=== PATIENT | female | born 1950 ===

== ENCOUNTER 2024-02-11 06:15 | Inpatient (IN) | payer MEDICARE, OTHER, SELFPAY ==
[2024-01-25 14:12] VITALS: BMI 31.4
[2024-01-25 15:13] LABS: Hematocrit 43.3 % (37.0-47.0); Hemoglobin 14.6 g/dL (12.0-16.0); Mean Corp Hgb Conc. 33.7 g/dL (33.0-37.0); Mean Corpuscular Hgb 30.7 pg (27.0-31.0); Mean Platelet Volume 9.7 fL (7.4-10.4); Platelet Count 334 10^3/uL (130-400); Red Blood Cell Count 4.76 10^6/uL (4.20-5.40); Red Cell Dist. Width 12.6 % (11.5-14.5); White Blood Cell Count 5.7 10^3/uL (4.8-10.8)
[2024-01-25 15:56] LABS: ALT (SGPT) 21 U/L (0-35); AST (SGOT) 24 U/L (14-36); Albumin 4.1 g/dl (3.5-5.0); Alkaline Phosphatase 62 U/L (38-126); Blood Urea Nitrogen 17 mg/dl (7-17); Calcium 9.8 mg/dl (8.4-10.2); Carbon Dioxide 24 mmol/L (22-30); Chloride 104 mmol/L (98-107); Estimated Creatinine Clearance 66 ml/min; Glucose 108 mg/dl (70-99); Sodium 140 mmol/L (135-145); Total Bilirubin 0.6 mg/dl (0.2-1.3); Total Protein 6.4 g/dl (6.3-8.2); eGFR > 60.00
[2024-01-26 09:06] LABS: Glycohemoglobin (HgbA1c) 5.9 % (4.0-5.6)
[2024-02-08 12:28] VITALS: BMI 31.4
[2024-02-11] VITALS (13 sets, daily range): BP systolic 128–200; BP diastolic 66–95; PULSE 91; O2SAT 98
[2024-02-11] MEDS: TYLENOL 650 MG PO ×5 (06:23→23:05)
[2024-02-11] MEDS: MOBIC 15 MG PO (06:23)
--- NOTE | 2024-02-11 09:46 | OR.RPT ---
Operative Report
Operative Report
Orthopaedic Surgery Operative Note
DATE OF OPERATION: 02/11/2024
PREOPERATIVE DIAGNOSES: Osteoarthritis, right knee.
POSTOPERATIVE DIAGNOSES: Osteoarthritis, right knee.
OPERATION PERFORMED:
1) Right total knee arthroplasty (CPT 42538)
2) Intraosseous administration of analgesic (CPT 79289)
SURGEON: Avel Marrero MD
ASSISTANTS: Carlos Jackman PA-C who helped with patient and limb positioning and retraction
ANESTHESIA: Spinal by anesthesia plus intraoperative infusion of morphine into the tibial metaphysis by Dr. Marrero
COMPLICATIONS: None.
ESTIMATED BLOOD LOSS: 20mL
DRAINS: None
TOURNIQUET TIME: 61 minutes.
IMPLANTS:
- Ericka Persona CR Femur, size 8
- Ericka Persona tibia base plate, size D
- Ericka Persona medial constrained articular surface, 10 mm
- All-polyethylene patellar component, size 32
- DJO [place] bone cement
INDICATIONS: The patient presented to my office with debilitating right knee pain due to osteoarthritis. We reviewed the natural history of this problem, as well as the risks, benefits, and alternatives of various treatment options. The patient
exhausted all nonoperative treatment options and wished to proceed with knee replacement surgery. The patient understood the risks which included, but were not limited to, bleeding, infection, failure to relieve pain, more pain than preop, damage to
blood vessels and nerves, need for reoperation, mechanical failure of the implants, wound healing problems, stiffness, instability, blood clot, pulmonary embolism, myocardial infarction, pneumonia, arrhythmia, CVA, and . The patient accepted
these risks and wished to proceed. All questions were answered, and informed consent was obtained.
PROCEDURE IN DETAIL: The patient was identified in the preoperative holding area. The right knee was identified as the operative site. The patient was taken in the operating room and placed in a supine position on the operating table. Spinal
anesthesia was performed. IV antibiotics and tranexamic acid were administered. An SCD was placed on the left lower extremity. A well-padded tourniquet was placed on the proximal thigh. All bony prominences were well padded. The right lower
extremity was prepped and draped in the usual sterile fashion.
We performed a surgical time-out. An interarticular block was performed with local anesthetic with epinephrine. The limb was exsanguinated with an Esmarch bandage, then the tourniquet was inflated to 250 mmHg. I performed interosseous administration
of morphine-saline solution via a Jamshidi style intraosseous needle into the proximal medial tibial metaphysis as described by Trav Stafford MD. This was performed to aid in pain control. A midline skin incision was made followed by a medial
parapatellar arthrotomy. A subperiosteal peel was performed on the medial tibia. I excised part of the infrapatellar fat pad to improve our visualization as well as tissue over anterior femur. The patella was everted and the knee was flexed. I
excised the remnants of the anterior and posterior cruciate ligaments as well as tibial and femoral osteophytes with rongeurs.
The knee was flexed, and the extramedullary tibial cutting guide was aligned. [place] was aligned at neutral, rotation was centered on the tibial tubercle, and coronal alignment was aligned with the mechanical axis of the tibia and center of the ankle
joint. The cut height was 10mm off the lateral tibia joint surface. The guide was secured into place. The MCL and LCL were protected. The tibia surface was cut. The cut surface was inspected after removal to ensure appropriate height and slope based
on the preoperative plan. The cut was checked with a drop liliana. It was centered nicely at the ankle.
A drill was used to open the femoral canal. The intramedullary distal femoral cutting guide was inserted into the femur. This was set at 5 degrees +0. This was secured into place with three pins. The cut level was checked with an howard wing. The
distal femur was cut through the cutting guide. The IM guide was reinserted to double check that the level of resection was flush and in appropriate alignment.
Gio�s line and the transepicondylar axis were marked on the femur. The femoral sizing guide was applied to the anterior femur. Pins were inserted, and the 4-in-1 cutting guide was applied and secured into place. The rotation was compared to
Gio�s line, the transepicondylar axis, and the neutral tibia cut and was found to be appropriate. The width was checked and found to be appropriate and lateralized on the femur. The anterior, posterior, and chamfur cuts were made. A lamina
property preservation specialist was used to open the flexion gap, and posterior osteophytes were removed with a curved osteotome. The remnant medial and lateral meniscus were also removed. I prophylactically cauterized the lateral geniculate arteries. A 10mm spacer block
was applied to the flexion gap and was noted to be balanced medially and laterally. The knee was extended, and the block showed symmetric to extension and flexion gaps.
The tibia was exposed and sized. Rotation was set in line with the tibial tubercle and congruent with the femur. The trial was secured into place with two pins. The trial femur was impacted into place, and a trial articular surface was placed. The
knee was taken through range of motion and noted to be stable throughout the arc of motion without gaping or excess tension. In extension, a measured resection of the patella was performed. The patella was sized, and lug holes were drilled. A trial
patella component was applied, and it was noted to track centrally throughout the arc of motion without need for further releases.
The trials were removed. The tibia keel was prepared with the punch and the drill. The bone surfaces were irrigated with sterile saline and dried. The cement was mixed in a vacuum mixer. Cement gun was used to apply cement to the tibial surface and
the undersurface of the tibial implant. Cement was pressurized into the tibial canal and tibia surface. The tibial component was impacted into place. Excess cement was removed. Cement was applied to the femoral surface and the femoral component. The
femoral component was impacted into place, and excess cement removed. A trial articular surface was inserted, and the knee was extended while the cement polymerized. The tourniquet was let down, and meticulous hemostasis was achieved. Dilute
betadine was poured into the wound and allowed to soak for 3 minutes. The knee was irrigated with copious normal saline.
Once the cement was polymerized, the trial articular surface was removed. Any excess cement was removed. The knee was trialed, and the final articular surface was selected and inserted into the tibial locking mechanism. The knee was reduced. A fresh
drape was applied to the surgical field.
The arthrotomy was closed with 0-PDS. Once closed, an interarticular block was performed with local anesthetic with epi. The deep dermal layer was closed with 2-0 PDS, and the subcuticular skin was closed with 3-0 monocryl. A Dermabond Prineo
dressing was applied to the skin in full flexion. Once this was completely dry, a sterile waterproof dressing was applied.
The anesthesia team performed an adductor canal block in the OR. The patient awoke from anesthesia without any difficulties. The sponge and instrument counts were correct x2 at the end of the case.
Emery Marrero MD
[2024-02-11] MEDS: ROXICODONE 5 MG PO ×3 (11:33→23:48)
--- NOTE | 2024-02-11 11:57 | PTCARENOTE ---
Pt arrived to [facility] from PACU s/p R TKR. Pt AAOx3, NV intact, R knee dressing C/D/I, pt states no pain at this time. Pt oriented to room and call mcdonough, call mcdonough within reach, bed locked and in lowest position.
[2024-02-11] MEDS: NORMOSOL-R/PLASMALYTE-A 1000 IV (12:34)
--- NOTE | 2024-02-11 13:41 | CM ---
Reviewed the chart notes and spoke with the patient at the bedside. The patient resides with her spouse in a two story home with two steps to enter. The patient has a rolling walker. The patient reports on VN or SNF in the past. The patient
confirmed her pharmacy of choice is the [facility]. CM consult for homecare received and discussed with the patient. The patient selected VN. Referral sent via [facility]. CM continues to be available to patient/family and is
monitoring medical plan for needs at discharge.
Plan: Discharge to home with VN services.
[2024-02-11] MEDS: ANCEF 5 IV ×2 (15:00→21:00)
--- NOTE | 2024-02-11 15:20 | W.PN.UPDATE ---
Update Note
Progress Note Update
R knee OA s/p R TKA w/ Dr Marrero 02/11/24
DVT prophylaxis - ASA, b/l venous foot pumps
HTN - + parameters - monitor BP
PAF (brief) - maintaining NSR - monitor on tele
- Continue BB
- No OAC
HLD
Hypothyroidism
Cervical DDD
OAB
Psoriasis
Anxiety
Prediabetes, A1c 5.9
Obesity, BMI 31.4
[2024-02-11] MEDS: ASPIRIN 325 MG PO (17:03)
[2024-02-11] MEDS: COLACE 100 MG PO (19:58)
[2024-02-11] MEDS: DECADRON 4 MG PO (19:58)
[2024-02-11] MEDS: BACTROBAN 2% OINTMENT 1 APPLIC NASAL (19:58)
[2024-02-11] MEDS: SENOKOT 17.2 MG PO (19:58)
[2024-02-11] MEDS: PEPCID 20 MG PO (21:00)
[2024-02-12 03:49] VITALS: BP 137/70
[2024-02-12] MEDS: TYLENOL PO ×2 (05:24→11:56)
[2024-02-12] MEDS: ROXICODONE 5 MG PO ×2 (06:25→11:55)
[2024-02-12] MEDS: SYNTHROID 112 MCG PO (06:25)
[2024-02-12 07:30] VITALS: BP 176/86
[2024-02-12] MEDS: SENOKOT 17.2 MG PO (07:59)
[2024-02-12] MEDS: COLACE 100 MG PO (07:59)
[2024-02-12] MEDS: NORVASC 5 MG PO (07:59)
[2024-02-12] MEDS: LOPRESSOR 50 MG PO (07:59)
[2024-02-12] MEDS: ASPIRIN 325 MG PO (08:00)
[2024-02-12] MEDS: MOBIC 15 MG PO (08:00)
[2024-02-12] MEDS: BACTROBAN 2% OINTMENT 1 APPLIC NASAL (08:00)
[2024-02-12] MEDS: DECADRON 4 MG PO (08:00)
[2024-02-12] MEDS: TYLENOL 650 MG PO (08:00)
[2024-02-12 09:45] VITALS: BP 183/74
[2024-02-12 11:15] VITALS: BP 179/80
--- NOTE | 2024-02-12 11:25 | W.PN.ORTHO ---
Today's Communication / Plan
-
D/c today if remaining clinically stable.
Assessment
.
Distal Motor Intact: Yes
Dressing:
Clean, dry and intact.
Assessment:
R knee OA s/p R TKA w/ Dr Marrero 02/11/24
DVT prophylaxis - ASA, b/l venous foot pumps
HTN - + parameters - BPs overall stable
PAF (brief) - maintaining NSR on tele
- Continue BB
- No OAC
HLD
Hypothyroidism
Cervical DDD
OAB
Psoriasis
Anxiety
Prediabetes, A1c 5.9
Obesity, BMI 31.4
Plan
.
Surgery / Date: R TKA w/ Dr Marrero 02/11/24
DVT Prophylaxis: Aspirin
Activity:
Out of bed.
PT/OT
Discharge Plan: Home w/ Outpatient PT (unless therapy feels home VN/PT would be beneficial)
Subjective
.
.:
Patient resting comfortably in bed this AM.
R knee pain overall well controlled w/ current pain meds.
Denies any new significant complaints.
Eager for potential d/c today.
Vital Signs and Labs
.
Vital Signs and Labs:
Lab Results
01/25/24 14:08
01/25/24 14:08
Temp Pulse Resp BP Pulse Ox
98.0 F 53 16 179/80 99
02/12/24 11:15 02/12/24 11:15 02/12/24 11:15 02/12/24 11:15 02/12/24 11:15
Non-invasive Hgb result: 14.1
Physical Exam
-
HEENT: No pallor, cyanosis, or jaundice. Throat clear.
NECK: Supple. No JVD.
RESPIRATORY: Lungs clear to auscultation.
CVS: S1, S2 normal. RRR.�
ABDOMEN: Soft, non-tender. No distension. Obese.
EXTREMITIES: Expected R knee post-surgical edema. Strength equal, no calf pain with palpation/dorsiflexion. Calves soft.
LINE PAINTING MACHINE OPERATOR: AOx3. No focal deficits. pocket machine operator grossly intact
[2024-02-12 11:52] VITALS: BP 179/86; PULSE 53; O2SAT 99
--- NOTE | 2024-02-12 12:05 | CM ---
Addendum entered by Melissa Escalera 02/12/24 13:48:
per tt from [place] Dr. Marrero spoke with patient and she does not want VN support at this time. Liaison made aware ([facility]).
Original Note:
Patient seen at bedside with PT and patient also present. Patient for probable discharge later today. IMM provided and reviewed. Patient to sign and patient to transport home. [facility] possible
discharge. CM will continue to follow for discharge planning needs.
Plan; home with VN vs home with outpatient follow up .
--- NOTE | 2024-02-12 13:11 | W.DS.TRANS ---
DC Summary - [place] [employer]
-
Discharge Instructions:
Sleep Apnea Risk Low
Discharge Diagnosis/Procedures R knee OA s/p R TKA w/ Dr Marrero 02/11/24
Diet Regular
Activity As tolerated,With Walker
Driving Restrictions Not until seen by your Dr
Bathing Restrictions OK to Shower
Other Services PT
Wound Care Leave dressing on until seen by surgeon's office
for follow-up in 2 weeks.
Instructions:
Stand-Alone Forms: Total Hip/Knee Replacement D/C
Changes to Home Medications: Yes
Discharge Medications:
DC Medications w/original date entered in [employer]
Mag Oxide 1 dose PO DAILY 02/05/24
Neuro Mag 1 dose PO HS 02/05/24
Psoriasis Cream 1 topical DAILY PRN psoriasis 02/05/24
clobetasol 0.05 % lotion 1 applic topical HS PRN psoriasis 02/05/24
levothyroxine 112 mcg tablet 112 mcg PO DAILY Thyroid 02/05/24
magnesium chloride 71.5 mg (magnesium chloride) tablet,delayed release (Slow-Mag) 71.5 mg PO BID Supplement 02/05/24
metoprolol tartrate 50 mg tablet 50 mg PO DAILY Blood Pressure 02/05/24
mometasone 0.1 % topical cream 1 applic topical DAILY PRN psoriasis 02/05/24
acetaminophen 500 mg tablet (Tylenol Extra Strength) 1,000 mg (2 x 500 mg) PO Q6H #60 tabs 02/12/24
amlodipine 2.5 mg tablet 5 mg (2 x 2.5 mg) PO DAILY Blood Pressure #30 tabs 02/12/24
aspirin 325 mg tablet 325 mg PO DAILY #30 tabs 02/12/24
dexamethasone 4 mg tablet 4 mg PO Q12H Anti-inflammatory #7 tabs 02/12/24
docusate sodium 100 mg capsule 100 mg PO BID #30 caps 02/12/24
meloxicam 15 mg tablet 15 mg PO DAILY #30 tabs 02/12/24
ondansetron HCl 4 mg tablet 4 mg PO Q6H PRN nausea and vomiting #30 tabs 02/12/24
oxycodone 5 mg tablet 5 - 10 mg (1 - 2 x 5 mg) PO Q6H PRN moderate-severe pain #30 tabs 02/12/24
sennosides 8.6 mg tablet (Senna Laxative) 17.2 mg (2 x 8.6 mg) PO BID #30 tabs 02/12/24
Home Medication Changes
acetaminophen 500 mg tablet (Tylenol Extra Strength) 1,000 mg (2 x 500 mg) PO Q6H #60 tabs 02/12/24
aspirin 325 mg tablet 325 mg PO DAILY #30 tabs 02/12/24
dexamethasone 4 mg tablet 4 mg PO Q12H Anti-inflammatory #7 tabs 02/12/24
docusate sodium 100 mg capsule 100 mg PO BID #30 caps 02/12/24
meloxicam 15 mg tablet 15 mg PO DAILY #30 tabs 02/12/24
ondansetron HCl 4 mg tablet 4 mg PO Q6H PRN nausea and vomiting #30 tabs 02/12/24
oxycodone 5 mg tablet 5 - 10 mg (1 - 2 x 5 mg) PO Q6H PRN moderate-severe pain #30 tabs 02/12/24
sennosides 8.6 mg tablet (Senna Laxative) 17.2 mg (2 x 8.6 mg) PO BID #30 tabs 02/12/24
Pending Results: No
--- NOTE | 2024-02-12 13:22 | VNURNOTE ---
Received update from NAHUN Torres that patient planning on starting outpt PT on Thursday, declining [facility] at this time. Leidy Cast and Dr Elida almeida.
== END 2024-02-12 14:07 | disposition home or self-care (01) | DRG 470 ==
LOC: 2 SOUTH 06:15
PROVIDERS: ADMITTING PHYSICIAN Orthopaedic Surgery; FAMILY PHYSICIAN Family Medicine; REFERRING PHYSICIAN Internal Medicine Cardiovascular Disease
PROC: 0SRC0J9 Replacement of Right Knee Joint with Synthetic Substitute, Cemented, Open Approach (ICD-10-PCS; 2024-02-11)
DX: M17.11 Unilateral primary osteoarthritis, right knee (principal); I10 Essential (primary) hypertension; E03.9 Hypothyroidism, unspecified; I48.0 Paroxysmal atrial fibrillation; M25.561 Pain in right knee; Z79.890 Hormone replacement therapy; Z79.899 Other long term (current) drug therapy; Z88.2 Allergy status to sulfonamides
CPT/HCPCS: 36415; 73560; 80053; 83036; 85027; 87070; 97110; 97116; 97162; 97166; 97530; 97535; C1713; C1776

== ENCOUNTER 2024-06-30 07:27 | Inpatient (IN) | payer MEDICARE, OTHER, SELFPAY ==
[2024-06-16 12:08] LABS: Hematocrit 50.2 % (37.0-47.0); Hemoglobin 16.6 g/dL (12.0-16.0); Mean Corp Hgb Conc. 33.1 g/dL (33.0-37.0); Mean Corpuscular Volume 93.8 fL (81.0-99.0); Mean Platelet Volume 9.4 fL (7.4-10.4); Platelet Count 261 10^3/uL (130-400); Red Blood Cell Count 5.35 10^6/uL (4.20-5.40); Red Cell Dist. Width 13.4 % (11.5-14.5); White Blood Cell Count 6.6 10^3/uL (4.8-10.8)
[2024-06-16 12:33] LABS: ALT (SGPT) 22 U/L (0-35); AST (SGOT) 24 U/L (14-36); Albumin 4.8 g/dl (3.5-5.0); Alkaline Phosphatase 88 U/L (38-126); Blood Urea Nitrogen 20 mg/dl (7-17); Calcium 9.9 mg/dl (8.4-10.2); Carbon Dioxide 27 mmol/L (22-30); Chloride 103 mmol/L (98-107); Glucose 99 mg/dl (70-99); Potassium 5.3 mmol/L (3.5-5.1); Sodium 138 mmol/L (135-145); Total Bilirubin 1.1 mg/dl (0.2-1.3); Total Protein 7.1 g/dl (6.3-8.2); eGFR > 60.00
[2024-06-16 12:39] LABS: Glycohemoglobin (HgbA1c) 5.9 % (4.0-5.6)
[2024-06-16 13:43] VITALS: BMI 32.2
[2024-06-16 16:00] VITALS: BMI 32.2
[2024-06-30] VITALS (18 sets, daily range): BP systolic 105–174; BP diastolic 56–87; O2SAT 99; BMI 32.2
[2024-06-30] MEDS: NORMOSOL-R/PLASMALYTE-A 1000 IV (07:25)
[2024-06-30] MEDS: TYLENOL 650 MG PO ×3 (07:43→21:42)
[2024-06-30] MEDS: NSS 1000 IV (12:48)
[2024-06-30] MEDS: ROXICODONE 5 MG PO (12:49)
--- NOTE | 2024-06-30 13:48 | W.PN.UPDATE ---
Update Note
Progress Note Update
L knee OA s/p L TKA w/ Dr Marrero 06/30/24
- s/p R TKA, 01/2024, by Dr Marrero
DVT prophylaxis - ASA, b/l venous foot pumps
HTN - + parameters - monitor BP
PAF - monitor on tele
- Continue BB
- on ASA only
HLD
Hypothyroidism
Cervical degenerative disc disease
Overactive bladder
Psoriasis
Anxiety
Mild hyperkalemia
Prediabetes, A1c 5.9
Obesity, BMI 32.2
[2024-06-30] MEDS: NORVASC 5 MG PO (14:11)
[2024-06-30] MEDS: ZOFRAN 4 MG IV (16:00)
[2024-06-30] MEDS: ANCEF 5 IV (16:00)
--- NOTE | 2024-06-30 16:21 | PTCARENOTE ---
FYI page to surgery about pt's bradycardia
--- NOTE | 2024-06-30 17:33 | OR.RPT ---
Operative Report
Operative Report
Orthopaedic Surgery Operative Note
DATE OF OPERATION: 06/30/2024
PREOPERATIVE DIAGNOSES: Osteoarthritis, left knee.
POSTOPERATIVE DIAGNOSES: Osteoarthritis, left knee.
OPERATION PERFORMED:
1) Left total knee arthroplasty (CPT 43810)
2) Intraosseous administration of analgesic (CPT 27960)
SURGEON: Avel Marrero MD
ASSISTANTS: Carlos Jackman PA-C who helped with patient and limb positioning and retraction
ANESTHESIA: Spinal by anesthesia plus intraoperative infusion of morphine into the tibial metaphysis by Dr. Marrero
COMPLICATIONS: None.
ESTIMATED BLOOD LOSS: 20mL
DRAINS: None
TOURNIQUET TIME: 48 minutes.
IMPLANTS:
- Ericka Persona CR Femur, size 8
- Ericka Persona tibia base plate, size D
- Ericka Persona medial constrained articular surface, 10 mm
- All-polyethylene patellar component, size 32
- DJO [place] bone cement
INDICATIONS: The patient presented to my office with debilitating left knee pain due to osteoarthritis. We reviewed the natural history of this problem, as well as the risks, benefits, and alternatives of various treatment options. The patient
exhausted all nonoperative treatment options and wished to proceed with knee replacement surgery. The patient understood the risks which included, but were not limited to, bleeding, infection, failure to relieve pain, more pain than preop, damage to
blood vessels and nerves, need for reoperation, mechanical failure of the implants, wound healing problems, stiffness, instability, blood clot, pulmonary embolism, myocardial infarction, pneumonia, arrhythmia, CVA, and . The patient accepted
these risks and wished to proceed. All questions were answered, and informed consent was obtained.
PROCEDURE IN DETAIL: The patient was identified in the preoperative holding area. The left knee was identified as the operative site. The patient was taken in the operating room and placed in a supine position on the operating table. Spinal
anesthesia was performed. IV antibiotics and tranexamic acid were administered. An SCD was placed on the right lower extremity. A well-padded tourniquet was placed on the proximal thigh. All bony prominences were well padded. The left lower
extremity was prepped and draped in the usual sterile fashion.
We performed a surgical time-out. An interarticular block was performed with local anesthetic with epinephrine. The limb was exsanguinated with an Esmarch bandage, then the tourniquet was inflated to 250 mmHg. I performed interosseous administration
of morphine-saline solution via a Jamshidi style intraosseous needle into the proximal medial tibial metaphysis as described by Trav Stafford MD. This was performed to aid in pain control. A midline skin incision was made followed by a medial
parapatellar arthrotomy. A subperiosteal peel was performed on the medial tibia. I excised part of the infrapatellar fat pad to improve our visualization as well as tissue over anterior femur. The patella was everted and the knee was flexed. I
excised the remnants of the anterior and posterior cruciate ligaments as well as tibial and femoral osteophytes with rongeurs.
The knee was flexed, and the extramedullary tibial cutting guide was aligned. Sac was aligned at neutral, rotation was centered on the tibial tubercle, and coronal alignment was aligned with the mechanical axis of the tibia and center of the ankle
joint. The cut height was 10mm off the lateral tibia joint surface. The guide was secured into place. The MCL and LCL were protected. The tibia surface was cut. The cut surface was inspected after removal to ensure appropriate height and slope based
on the preoperative plan. The cut was checked with a drop liliana. It was centered nicely at the ankle.
A drill was used to open the femoral canal. The intramedullary distal femoral cutting guide was inserted into the femur. This was set at 5 degrees +0. This was secured into place with three pins. The cut level was checked with an howard wing. The
distal femur was cut through the cutting guide. The IM guide was reinserted to double check that the level of resection was flush and in appropriate alignment.
Gio's line and the transepicondylar axis were marked on the femur. The femoral sizing guide was applied to the anterior femur. Pins were inserted, and the 4-in-1 cutting guide was applied and secured into place. The rotation was compared to
Llano's line, the transepicondylar axis, and the neutral tibia cut and was found to be appropriate. The width was checked and found to be appropriate and lateralized on the femur. The anterior, posterior, and chamfur cuts were made. A lamina
louver mortiser operator was used to open the flexion gap, and posterior osteophytes were removed with a curved osteotome. The remnant medial and lateral meniscus were also removed. I prophylactically cauterized the lateral geniculate arteries. A 10mm spacer block
was applied to the flexion gap and was noted to be balanced medially and laterally. The knee was extended, and the block showed symmetric to extension and flexion gaps.
The tibia was exposed and sized. Rotation was set in line with the tibial tubercle and congruent with the femur. The trial was secured into place with two pins. The trial femur was impacted into place, and a trial articular surface was placed. The
knee was taken through range of motion and noted to be stable throughout the arc of motion without gaping or excess tension. In extension, a measured resection of the patella was performed. The patella was sized, and lug holes were drilled. A trial
patella component was applied, and it was noted to track centrally throughout the arc of motion without need for further releases.
The trials were removed. The tibia keel was prepared with the punch and the drill. The bone surfaces were irrigated with sterile saline and dried. The cement was mixed in a vacuum mixer. Cement gun was used to apply cement to the tibial surface and
the undersurface of the tibial implant. Cement was pressurized into the tibial canal and tibia surface. The tibial component was impacted into place. Excess cement was removed. Cement was applied to the femoral surface and the femoral component. The
femoral component was impacted into place, and excess cement removed. A trial articular surface was inserted, and the knee was extended while the cement polymerized. The tourniquet was let down, and meticulous hemostasis was achieved. Dilute
betadine was poured into the wound and allowed to soak for 3 minutes. The knee was irrigated with copious normal saline.
Once the cement was polymerized, the trial articular surface was removed. Any excess cement was removed. The knee was trialed, and the final articular surface was selected and inserted into the tibial locking mechanism. The knee was reduced. A fresh
drape was applied to the surgical field.
The arthrotomy was closed with 0-PDS. Once closed, an interarticular block was performed with local anesthetic with epi. The deep dermal layer was closed with 2-0 PDS, and the subcuticular skin was closed with 3-0 monocryl. A Dermabond Prineo
dressing was applied to the skin in full flexion. Once this was completely dry, a sterile waterproof dressing was applied.
The anesthesia team performed an adductor canal block in the OR. The patient awoke from anesthesia without any difficulties. The sponge and instrument counts were correct x2 at the end of the case.
Emery Marrero MD
[2024-06-30] MEDS: ASPIRIN 325 MG PO (18:01)
[2024-06-30] MEDS: PEPCID 20 MG PO (21:42)
[2024-06-30] MEDS: BACTROBAN 2% OINTMENT 1 APPLIC NASAL (21:43)
[2024-07-01] VITALS (7 sets, daily range): BP systolic 78–162; BP diastolic 36–88; PULSE 66–75; O2SAT 97–99
[2024-07-01] MEDS: ANCEF 5 IV (00:12)
[2024-07-01] MEDS: TYLENOL 650 MG PO ×4 (00:14→11:34)
[2024-07-01] MEDS: SYNTHROID 112 MCG PO (04:59)
[2024-07-01] MEDS: TOPROL XL 50 MG PO (07:46)
[2024-07-01] MEDS: ASPIRIN 325 MG PO (07:46)
[2024-07-01] MEDS: MOBIC 15 MG PO (07:47)
[2024-07-01] MEDS: NORVASC 5 MG PO (07:47)
[2024-07-01] MEDS: BACTROBAN 2% OINTMENT 1 APPLIC NASAL (07:48)
[2024-07-01] MEDS: MEDROL 24 MG PO (09:25)
--- NOTE | 2024-07-01 10:03 | CM ---
Met with pt at bedside
Pt reports she lives with her in a 2 story home; 2 steps to enter, FF set-up
Independent at baseline, drives, retired
DME - rolling walker, single point cane, raised toilet seat, transport chair
SNF/HH - denies past hx
Has ride at d/c
PCP - Nathen Bae
Pharm - [facility]
Has appt scheduled for outpatient PT on 07/04 at [facility] to transport. Has Rx
Plan - home with outpatient PT when medically stable
[2024-07-01] MEDS: NORMOSOL-R/PLASMALYTE-A 500 IV (10:20)
[2024-07-01] MEDS: LIDOCAINE 4% PATCH 2 PATCH TOPICAL (10:30)
--- NOTE | 2024-07-01 10:40 | W.PN.ORTHO ---
Today's Communication / Plan
-
Monitor orthostatics after IVF bolus.
Work w/ OT as able. Did well w/ PT despite orthostatic episode.
D/c possible for later today pending clinical stability.
Assessment
.
Distal Motor Intact: Yes
Dressing:
Clean, dry and intact.
Assessment:
L knee OA s/p L TKA w/ Dr Marrero 06/30/24
- s/p R TKA, 01/2024, by Dr Marrero
DVT prophylaxis - ASA, b/l venous foot pumps
Symptomatic orthostasis with therapy (near-syncope) - IVF bolus ordered
- Consider Midodrine
- Minimize opioids as able
- Reassess orthostatic VS after bolus
HTN - + parameters - monitor BP
PAF - maintaining NSR on tele
- Continue BB
- on ASA only
HLD
Hypothyroidism
Cervical degenerative disc disease
Overactive bladder
Psoriasis
Anxiety
Mild hyperkalemia
Prediabetes, A1c 5.9
Obesity, BMI 32.2
Plan
.
Surgery / Date: L TKA w/ Dr Marrero 06/30/24
DVT Prophylaxis: Aspirin
Activity:
Out of bed.
PT/OT
Discharge Plan: Home w/ Outpatient PT
Subjective
.
.:
Patient examined resting in her chair.
Symptomatic orthostasis with therapy this AM - IVF bolus ordered.
Reporting L knee pain but refusing opioids currently.
Eager for potential d/c today.
Vital Signs and Labs
.
Vital Signs and Labs:
Lab Results
06/16/24 10:20
06/16/24 11:50
Temp Pulse Resp BP Pulse Ox
97.8 F 66 18 146/62 98
07/01/24 07:25 07/01/24 07:47 07/01/24 07:25 07/01/24 07:47 07/01/24 07:25
Non-invasive Hgb result: 11.6
Physical Exam
-
HEENT: No pallor, cyanosis, or jaundice. Throat clear.
NECK: Supple. No JVD.
RESPIRATORY: Lungs clear to auscultation.
CVS: S1, S2 normal. RRR.�
ABDOMEN: Soft, non-tender. No distension. Obese.
EXTREMITIES: Expected post-surgical L knee edema. Strength equal, no calf pain with palpation/dorsiflexion. Calves soft.
DUB ROOM ENGINEER: AOx3. No focal deficits. crepe sole wire brusher grossly intact
--- NOTE | 2024-07-01 13:59 | W.DS.TRANS ---
DC Summary - Teacher Advisor
-
Discharge Instructions:
Sleep Apnea Risk Low
Discharge Diagnosis/Procedures L knee OA s/p L TKA w/ Dr Marrero 06/30/24
Diet Regular
Activity As tolerated,With Walker
Driving Restrictions Not until seen by your Dr
Bathing Restrictions OK to Shower
Other Services PT
Wound Care Leave dressing on until seen by surgeon's office
for follow-up
Instructions:
Stand-Alone Forms: Total Hip/Knee Replacement D/C
Changes to Home Medications: Yes
Discharge Medications:
DC Medications w/original date entered in [facility]
Mag Oxide 1 dose PO DAILY Supplement 02/05/24
Neuro Mag 1 dose PO HS Supplement 02/05/24
clobetasol 0.05 % lotion 1 applic topical HS PRN psoriasis 02/05/24
levothyroxine 112 mcg tablet 112 mcg PO DAILY Thyroid 02/05/24
magnesium chloride 71.5 mg (magnesium chloride) tablet,delayed release (Slow-Mag) 71.5 mg PO BID Supplement 02/05/24
mometasone 0.1 % topical cream 1 applic topical DAILY PRN psoriasis 02/05/24
metoprolol succinate 50 mg tablet,extended release 24 hr 50 mg PO DAILY Heart Disease/Condition 06/15/24
aspirin 325 mg tablet,delayed release 325 mg PO DAILY Blood Clot Prevention/Tx 06/16/24
mupirocin 2 % topical ointment 1 applic intranasal BID #1 tube 06/16/24
acetaminophen 500 mg tablet (Tylenol Extra Strength) 1,000 mg (2 x 500 mg) PO Q6H #60 tabs 06/30/24
amlodipine 2.5 mg tablet 5 mg (2 x 2.5 mg) PO DAILY Blood Pressure #30 tabs 06/30/24
docusate sodium 100 mg capsule 100 mg PO BID #30 caps 06/30/24
famotidine 20 mg tablet 20 mg PO HS #30 tabs 06/30/24
meloxicam 15 mg tablet 15 mg PO DAILY #14 tabs 06/30/24
methylprednisolone 4 mg tablets in a dose pack 4 mg PO DAILY #21 ea 06/30/24
ondansetron 4 mg disintegrating tablet 4 mg PO Q6H PRN nausea and vomiting #30 tabs 06/30/24
oxycodone 5 mg tablet 5 - 10 mg (1 - 2 x 5 mg) PO Q6H PRN moderate-severe pain #30 tabs 06/30/24
sennosides 8.6 mg tablet (Karis-bridget) 17.2 mg (2 x 8.6 mg) PO BID #30 tabs 06/30/24
lidocaine 4 % topical patch 2 patch topical DAILY #30 ea 07/01/24
Home Medication Changes
aspirin 325 mg tablet,delayed release 325 mg PO DAILY Blood Clot Prevention/Tx 06/16/24
acetaminophen 500 mg tablet (Tylenol Extra Strength) 1,000 mg (2 x 500 mg) PO Q6H #60 tabs 06/30/24
docusate sodium 100 mg capsule 100 mg PO BID #30 caps 06/30/24
famotidine 20 mg tablet 20 mg PO HS #30 tabs 06/30/24
meloxicam 15 mg tablet 15 mg PO DAILY #14 tabs 06/30/24
methylprednisolone 4 mg tablets in a dose pack 4 mg PO DAILY #21 ea 06/30/24
ondansetron 4 mg disintegrating tablet 4 mg PO Q6H PRN nausea and vomiting #30 tabs 06/30/24
oxycodone 5 mg tablet 5 - 10 mg (1 - 2 x 5 mg) PO Q6H PRN moderate-severe pain #30 tabs 06/30/24
sennosides 8.6 mg tablet (Karis-bridget) 17.2 mg (2 x 8.6 mg) PO BID #30 tabs 06/30/24
lidocaine 4 % topical patch 2 patch topical DAILY #30 ea 07/01/24
Pending Results: No
== END 2024-07-01 15:08 | disposition home or self-care (01) | DRG 470 ==
LOC: 2 SOUTH 07:27
PROVIDERS: ADMITTING PHYSICIAN Orthopaedic Surgery; FAMILY PHYSICIAN Family Medicine
PROC: 0SRD069 Replacement of Left Knee Joint with Oxidized Zirconium on Polyethylene Synthetic Substitute, Cemented, Open Approach (ICD-10-PCS; 2024-06-30)
DX: M17.12 Unilateral primary osteoarthritis, left knee (principal); Z68.32 Body mass index [BMI] 32.0-32.9, adult; E66.9 Obesity, unspecified; I10 Essential (primary) hypertension; I48.0 Paroxysmal atrial fibrillation; Z98.41 Cataract extraction status, right eye; Z98.42 Cataract extraction status, left eye
CPT/HCPCS: 36415; 73560; 80053; 83036; 85027; 87070; 97110; 97116; 97162; 97166; 97530; 97535; C1713; C1776